=== PATIENT | female | born 1965 | race American Indian/Alaskan Native ===

== ENCOUNTER 2020-07-02 10:48 | Outpatient (CLI) | payer OTHER ==
--- NOTE | 2020-07-02 13:03 | XRay Report ---
BILATERAL KNEES 4 VIEWS 11:30 INDICATION: BILATERAL KNEE PAIN COMPARISON: None available. FINDINGS: No fractures or dislocations are seen. No obvious joint effusions are noted. Prominent tric ompartment degenerative changes are seen bilaterally. Prominent bilateral medial joint space narrowin g is seen. Genu varus is noted bilaterally, worse on the right. Signer Name: Yariel Nava MD Signed: 07/02/2020 12:58 PM Workstation Name: [id number]
== END 2020-07-02 10:49 | disposition home or self-care (01) ==
LOC: XRAY 10:48
PROVIDERS: ATTEND Internal Medicine
DX: Z02.71 Encounter for disability determination (principal); M17.0 Bilateral primary osteoarthritis of knee